=== PATIENT | female | born 1975 | race American Indian/Alaskan Native ===

== ENCOUNTER 2018-11-15 21:53 | Inpatient (IN) | payer BC, OTHER ==
[2018-11-15] MEDS ORDERED: NACL 0.9% 1000 ML 1,000 ML IV ONE ×2 (22:34→23:44)
[2018-11-15 23:00] LABS: Basophils % (Auto) 0.6 % (0.0-1.8); Eosinophils % (Auto) 0.4 % (0.0-4.3); Hemoglobin 13.4 gm/dl (10.1-14.3); Lymphocytes # (Auto) 1.3 K/mm3 (1.2-5.4); Lymphocytes % (Auto) 24.1 % (13.4-35.0); Mean Corpuscular HGB Conc 33 % (30-34); Mean Corpuscular Volume 80 fl (79-97); Monocytes # (Auto) 0.4 K/mm3 (0.0-0.8); Monocytes % (Auto) 6.7 % (0.0-7.3); Platelet Count 224 K/mm3 (140-440); Red Blood Count 5.15 M/mm3 (3.65-5.03); Red Cell Distribution Width 15.5 % (13.2-15.2)
[2018-11-15] MEDS ORDERED: NORMODYNE IV ONE (23:05)
[2018-11-15 23:09] LABS: Bilirubin,Urine NEG (Negative); Blood,Urine SM (Negative); Color,Urine Straw (Yellow); Urobilinogen,Urine < 2.0 mg/dL (<2.0)
[2018-11-15 23:11] LABS: Protein,Urine >500 mg/dL (Negative)
[2018-11-15 23:28] LABS: Calcium 9.5 mg/dL (8.4-10.2)
[2018-11-15] MEDS ORDERED: KEPPRA 1,000 MG/NS 0.75% 100ML 1,000 MG/100 ML BAG IV ONE (23:44)
[2018-11-15] MEDS ORDERED: HumuLIN R IV ONE (23:44)
--- NOTE | 2018-11-15 23:50 | Cat Scan Report ---
PROCEDURE: CT HEAD/BRAIN WO CON TECHNIQUE: Computerized tomography of the head was performed without contrast material. CT DOSE LENGTH PRODUCT: mGycm HISTORY: seizure, ams COMPARISONS: None . FINDINGS: Skull and scalp: Normal . Paranasal sinuses: Normal . Ventricles and subarachnoid spaces: Normal . Cerebrum: No evidence of hemorrhage, acute infarction or mass . Cerebellum and brainstem: No evidence of hemorrhage, acute infarction or mass . Vasculature: Normal . Other: None . ASPECTS: 10 IMPRESSION: Normal Examination . This document is electronically signed by Shalom Guillaume MD., November 15 2018 11:47:51 PM ET
[2018-11-16] MEDS ORDERED: ZOFRAN ONE (00:44)
--- NOTE | 2018-11-16 00:58 | Emergency Department Report ---
ED Seizure HPI - General Chief Complaint: Seizure Stated Complaint: SEIZURE Time Seen by Provider: 11/15/18 22:19 Source: EMS Mode of arrival: Stretcher Limitations: Altered Mental Status - History of Present Illness Initial Comments: 33-year-old female with history of hypertension ED following a seizure work. 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 Friend states she was with her today and patient was complaining of cramping to her hands. States patient then had a seizure that lasted for approx 2-3 minutes. Patient had urinary incontinence as well. EMS was called. Accucheck reads HIGH. EMS initially reported that pt had history of seizure, HYN, and diabetes. Friend currently at bedside. States that the patient does not have history of seizures or diabetes. Patient appears to be postictal at this time. Friend states patient does not use alcohol or drugs. MD Complaint: seizure -: This afternoon Description of Episode: loss of consciousness, tonic-clonic movement, bladder incontinence Witnessed:: Yes Seizure History: none Place: work - Related Data Allergies Allergy/AdvReac Type Severity Reaction Status Date / Time No Known Allergies Allergy Verified 11/15/18 23:51 ED Review of Systems ROS: Stated complaint: SEIZURE Other details as noted in HPI Comment: Unobtainable due to pts medical conditions (altered mental status) ED Past Medical Hx - Past Medical History Previous Medical History?: Yes Hx Hypertension: Yes Hx Diabetes: Yes Hx Seizures: Yes - Surgical History Past Surgical History?: No - Social History Smoking Status: Never Smoker Substance Use Type: None ED Physical Exam - General Limitations: Altered Mental Status General appearance: lethargic - Head Head exam: Present: atraumatic, normocephalic - Eye Eye exam: Present: normal appearance, PERRL, EOMI - ENT ENT exam: Present: mucous membranes moist - Neck Neck exam: Present: normal inspection - Respiratory Respiratory exam: Present: normal lung sounds bilaterally. Absent: respiratory distress - Cardiovascular Cardiovascular Exam: Present: regular rate, normal rhythm - GI/Abdominal GI/Abdominal exam: Present: soft. Absent: distended, tenderness - Extremities Exam Extremities exam: Present: normal inspection - Neurological Exam Neurological exam: Present: altered, other (moves all extremities, not following commands, not speaking) - Skin Skin exam: Present: warm, dry, intact, normal color. Absent: rash ED Course Vital Signs 11/15/18 11/15/18 11/15/18 22:13 22:40 22:45 Temperature 98.1 F Pulse Rate 115 H 105 H 101 H Respiratory 16 18 29 H Rate Blood Pressure 215/154 203/154 O2 Sat by Pulse 96 90 95 Oximetry 11/15/18 11/15/18 11/15/18 23:00 23:10 23:18 Temperature Pulse Rate 101 H Respiratory 11 L Rate Blood Pressure 189/143 204/121 206/137 O2 Sat by Pulse 92 94 Oximetry 11/15/18 11/15/18 11/15/18 23:33 23:39 23:45 Temperature Pulse Rate 86 Respiratory 26 H 18 24 Rate Blood Pressure 206/137 199/141 O2 Sat by Pulse 99 99 Oximetry 11/15/18 11/16/18 11/16/18 23:48 00:00 00:15 Temperature 98.0 F Pulse Rate 87 89 Respiratory 17 23 Rate Blood Pressure 206/148 206/137 O2 Sat by Pulse 100 93 Oximetry 11/16/18 02:02 Temperature Pulse Rate 85 Respiratory Rate Blood Pressure 176/127 O2 Sat by Pulse Oximetry - Reevaluation(s) Reevaluation #1: 11/16/18 00:53 Pt remains altered. Patient is awake and alert. When I ask pt her name, she mumbles a response but speech is unrecognizable. She also seems to be somewhat agitated, moving around on stretcher, whining as if she id about to cry. Will obtain drug screen and ETOH. ED Medical Decision Making - Lab Data Result diagrams: 11/15/18 22:45 11/15/18 22:45 - EKG Data -: EKG Interpreted by Me EKG shows normal: sinus rhythm, axis, intervals, QRS complexes, ST-T waves Rate: normal - EKG Data Interpretation: LVH, other (T wave inversions II, III, aVF, V3-V6) - Radiology Data Radiology results: report reviewed, image reviewed - Medical Decision Making 43-year-old female here in ED with seizure and hyperglycemia, both possibly new onset. Patient remains altered, prolonged post-ictal period. Blood pressure remained elevated despite labetalol, hydralazine, Ativan. So cardene drip initiated. Initial glucose resulted at 800, however patient does not appear to be in DKA as bicarbonate is normal, no ketones present. 2 L bolus of IV fluids and 10 units of insulin given. Repeat Accu-Chek 371. CT head negative, chest x-ray negative. Patient afebrile, wbc's normal, no signs of infection. UA and test both negative. Drug screen, ETOH, tylenol, salicylates all negative. Spoke with hospitalist, Dr Jacobo, for admission and further workup. - Differential Diagnosis CVA, hyperglycemia, DKA, HTN emergency Critical Care Time: Yes Critical care time in (mins) excluding proc time.: 60 Critical care attestation.: If time is entered above; I have spent that time in minutes in the direct care of this critically ill patient, excluding procedure time. Critical Care Time: 60 minutes ED Disposition Clinical Impression: Hyperglycemia, Seizure, Hypertensive emergency Disposition: -09 OP ADMIT IP TO THIS HOSP Is pt being admited?: Yes Condition: Critical Instructions: Hypertension (ED) Referrals: PRIMARY CARE, [Primary Care Provider] - 3-5 Days Time of Disposition: 02:39
[2018-11-16] MEDS ORDERED: ATIVAN ONE ×3 (01:37→21:55)
[2018-11-16] MEDS ORDERED: ZOFRAN IV ONE (01:38)
[2018-11-16] MEDS ORDERED: ATIVAN IV ONE (01:39)
[2018-11-16] MEDS ORDERED: APRESOLINE IV ONE ×2 (01:43→02:31)
--- NOTE | 2018-11-16 02:06 | XRay Report ---
PROCEDURE: XR CHEST 1V AP TECHNIQUE: Chest radiograph single view. HISTORY: AMS COMPARISONS: None . FINDINGS: Heart: The heart is mildly enlarged.. Mediastinum/Vessels: Normal. Lungs/Pleural space: Normal. Bony thorax: No acute osseous abnormality. Life support devices: None. IMPRESSION: No acute cardiopulmonary abnormality. This document is electronically signed by Jeet Aguirre MD., November 16 2018 02:04:49 AM ET
[2018-11-16 02:18] LABS: Amphetamine Screen,Urine PRESUMPTIVE NEGATIVE; Benzodiazepines Screen,Urine PRESUMPTIVE NEGATIVE; Cannabinoid Screen,Urine PRESUMPTIVE NEGATIVE; Cocaine Screen,Urine PRESUMPTIVE NEGATIVE; Methadone Screen,Urine PRESUMPTIVE NEGATIVE; Opiate Screen,Urine PRESUMPTIVE NEGATIVE
[2018-11-16] MEDS: CARDENE 50 MG in NACL 0.9% 250ML 230 ML IV SCH ×2 (03:06→12:57)
[2018-11-16] MEDS ORDERED: TYLENOL PR PRN (03:35)
[2018-11-16] MEDS ORDERED: SODIUM CHLORIDE FLUSH SYRINGE 10 ML IV PRN (03:35)
[2018-11-16] MEDS ORDERED: ZOFRAN IV PRN (03:35)
[2018-11-16] MEDS ORDERED: TYLENOL PO PRN (03:35)
[2018-11-16] MEDS ORDERED: D50W (25GM) Syringe IV PRN ×2 (03:42→15:26)
--- NOTE | 2018-11-16 03:43 | History and Physical Report ---
History of Present Illness Date of examination: 11/16/18 History of present illness: 43-year-old man with a history of hypertension was brought to the emergency room because she had a seizure. Not much history was able to be obtained, her speech was tangential in the emergency room, she was agitated and again given IV Ativan, she is now sedated. She was started on Cardene drip for uncontrolled hypertension, her sugars were found to be elevated. Review of system is unobtainable PAST MEDICAL HISTORY: hypertension PAST SURGICAL HISTORY: Unknown SOCIAL HISTORY: Unknown FAMILY HISTORY: Unknown Medications and Allergies Allergies Allergy/AdvReac Type Severity Reaction Status Date / Time No Known Allergies Allergy Verified 11/15/18 23:51 Active Meds: Active Medications Acetaminophen (Tylenol) 650 mg PO Q4H PRN PRN Reason: Pain, Mild (1-3) Acetaminophen (Tylenol) 650 mg MT Q4H PRN PRN Reason: Pain, Mild (1-3) Enoxaparin Sodium (Lovenox) 30 mg SUB-Q QDAY MORGAN Nicardipine HCl 50 mg/ Sodium (Chloride) 250 mls @ 25 mls/hr IV TITR MORGAN; Protocol Last Titration: 11/16/18 03:35 Dose: 2.5 mg/hr, 12.5 mls/hr Documented by: Ondansetron HCl (Zofran) 4 mg IV Q8H PRN PRN Reason: Nausea And Vomiting Sodium Chloride (Sodium Chloride Flush Syringe 10 Ml) 10 ml INJ PRN PRN PRN Reason: LINE FLUSH Exam - Physical Exam Narrative exam: General Apperance: The patient lying in bed, breathing comfortable HEENT: Normocephalic, atraumatic. Pupils equally round and reactive to light, unable to do EOM, no sclericterus or JVD or thyromegaly or nodule. , no carotid bruit, mucous membranes moist, unable to examine oral cavity, ET tube in place Heart: S1-S2, regular is rhythm Lungs: Clear to auscultation bilaterally, breathing comfortable Abdomen: Positive bowel sounds, soft, nondistended, no organomegaly Extremities: No edema cyanosis clubbing Skin: no rash, nodule, warm and dry Neuro: Sedated, moves all 4 extremities - Constitutional Vitals: Temp Pulse Resp BP Pulse Ox 98.0 F 99 H 19 175/109 99 11/15/18 23:48 11/16/18 03:31 11/16/18 03:31 11/16/18 03:31 11/16/18 03:31 Results - Labs CBC & Chem 7: 11/16/18 08:39 11/16/18 23:35 Labs: Abnormal lab results 11/15/18 11/15/18 11/15/18 Range/Units 22:45 22:45 22:48 RBC 5.15 H (3.65-5.03) M/mm3 MCH 26 L (28-32) pg RDW 15.5 H (13.2-15.2) % Sodium 127 L (137-145) mmol/L Potassium 3.4 L (3.6-5.0) mmol/L Chloride 85.6 L (98-107) mmol/L BUN 18 H (7-17) mg/dL Creatinine 1.4 H (0.7-1.2) mg/dL Glucose 808 H* (65-100) mg/dL POC Glucose > 500 H (70-105) Salicylates (2.8-20.0) mg/dL Acetaminophen (10.0-30.0) ug/mL 11/16/18 11/16/18 11/16/18 Range/Units 01:01 01:01 01:41 RBC (3.65-5.03) M/mm3 MCH (28-32) pg RDW (13.2-15.2) % Sodium (137-145) mmol/L Potassium (3.6-5.0) mmol/L Chloride (98-107) mmol/L BUN (7-17) mg/dL Creatinine (0.7-1.2) mg/dL Glucose (65-100) mg/dL POC Glucose 371 H (70-105) Salicylates 1.8 L (2.8-20.0) mg/dL Acetaminophen < 5.0 L (10.0-30.0) ug/mL 11/16/18 Range/Units 03:42 RBC (3.65-5.03) M/mm3 MCH (28-32) pg RDW (13.2-15.2) % Sodium (137-145) mmol/L Potassium (3.6-5.0) mmol/L Chloride (98-107) mmol/L BUN (7-17) mg/dL Creatinine (0.7-1.2) mg/dL Glucose (65-100) mg/dL POC Glucose 374 H (70-105) Salicylates (2.8-20.0) mg/dL Acetaminophen (10.0-30.0) ug/mL - Imaging and Cardiology Chest x-ray: report reviewed CT Scan - head: report reviewed Assessment and Plan Assessment Acute encephalopathy, rule out CVA New-onset seizure. Acute renal insufficiency Hypertensive urgency New onset diabetes Plan Admit to medicine Obtain MRI of the head, carotid Doppler, echo Doing neuro checks, consult neurology, critical care Start IV Ativan as needed for seizure Continue Cardene drip, start IV fluid Start aspirin, statin, DVT prophylaxis Check fingersticks, initiate insulin sliding scale, hemoglobin A1c
[2018-11-16 04:27] LABS: Creatine Kinase MB 2.9 ng/mL (0.0-4.0)
[2018-11-16] MEDS ORDERED: NACL 0.45% 1000 ML 1,000 ML IV SCH (05:00)
[2018-11-16] MEDS ORDERED: NACL 0.45% 1000 ML 1,000 ML IV ONE ×2 (06:35→16:42)
[2018-11-16] MEDS ORDERED: HumuLIN R ONE ×2 (08:08→12:06)
[2018-11-16] MEDS: HumaLOG SUB-Q SCH ×4 (08:10→22:30)
[2018-11-16 08:52] LABS: Basophils # (Auto) 0.1 K/mm3 (0.0-0.1); Basophils % (Auto) 0.4 % (0.0-1.8); Hematocrit 40.8 % (30.3-42.9); Hemoglobin 13.5 gm/dl (10.1-14.3); Lymphocytes # (Auto) 1.1 K/mm3 (1.2-5.4); Lymphocytes % (Auto) 7.3 % (13.4-35.0); Mean Corpuscular HGB Conc 33 % (30-34); Mean Corpuscular Volume 78 fl (79-97); Monocytes # (Auto) 0.5 K/mm3 (0.0-0.8); Monocytes % (Auto) 3.6 % (0.0-7.3); Platelet Count 259 K/mm3 (140-440); Red Blood Count 5.21 M/mm3 (3.65-5.03); Red Cell Distribution Width 15.6 % (13.2-15.2)
[2018-11-16 09:10] LABS: BUN/Creatinine Ratio 15; Blood Urea Nitrogen 15 mg/dL (7-17); Calcium 9.2 mg/dL (8.4-10.2); Hemolysis Index 5
[2018-11-16] MEDS ORDERED: LOVENOX SUB-Q SCH ×4 (10:00)
[2018-11-16] MEDS ORDERED: LOVENOX SUB-Q ONE (10:19)
[2018-11-16] MEDS: ATIVAN IV PRN ×2 (10:28→22:00)
--- NOTE | 2018-11-16 10:39 | Vascular Lab Report ---
PROCEDURE: VL CAROTID DUPLEX BILAT TECHNIQUE: Carotid duplex Doppler ultrasound HISTORY: stroke COMPARISON: None FINDINGS: There is a minimal amount of atherosclerotic plaque. There are no abnormal elevation in carotid flow velocity to suggest a hemodynamically significant stenosis. Specifically, findings indicate stenosis of less than 50%. ICA/CCA velocity ratios are normal, 0.66 on the right and 0.60. Vertebral artery fl ow is antegrade bilaterally. IMPRESSION: No evidence of a hemodynamically significant stenosis. This document is electronically signed by Adela Latif MD., November 16 2018 10:37:09 AM ET
--- NOTE | 2018-11-16 11:23 | Progress Note ---
Subjective Date of service: 11/16/18 Interval history: see the dictated comments personal review of the CT of ther brain is normal the likely cause is hyperglycemia seizure control is recommended w/u is pending Objective - Vital Sign Vital Signs - 12hr 11/15/18 11/15/18 11/15/18 23:33 23:39 23:45 Temperature Pulse Rate 86 Respiratory 26 H 18 24 Rate Blood Pressure 206/137 199/141 Blood Pressure [Left] O2 Sat by Pulse 99 99 Oximetry 11/15/18 11/16/18 11/16/18 23:48 00:00 00:15 Temperature 98.0 F Pulse Rate 87 89 Respiratory 17 23 Rate Blood Pressure 206/148 206/137 Blood Pressure [Left] O2 Sat by Pulse 100 93 Oximetry 11/16/18 11/16/18 11/16/18 00:16 00:30 00:46 Temperature Pulse Rate 87 131 H Respiratory 14 16 Rate Blood Pressure 192/150 193/140 193/140 Blood Pressure [Left] O2 Sat by Pulse 100 100 Oximetry 11/16/18 11/16/18 11/16/18 01:01 01:15 01:31 Temperature Pulse Rate 92 H 92 H 94 H Respiratory 21 16 21 Rate Blood Pressure 193/140 189/131 206/147 Blood Pressure [Left] O2 Sat by Pulse 98 100 100 Oximetry 11/16/18 11/16/18 11/16/18 01:45 02:01 02:02 Temperature Pulse Rate 85 116 H 85 Respiratory 24 23 Rate Blood Pressure 176/127 171/129 176/127 Blood Pressure [Left] O2 Sat by Pulse 97 98 Oximetry 11/16/18 11/16/18 11/16/18 02:15 02:30 02:45 Temperature Pulse Rate 89 86 96 H Respiratory 37 H 25 H 18 Rate Blood Pressure 171/129 205/141 214/125 Blood Pressure [Left] O2 Sat by Pulse 100 97 100 Oximetry 11/16/18 11/16/18 11/16/18 03:00 03:15 03:31 Temperature Pulse Rate 91 H 107 H 99 H Respiratory 29 H 26 H 19 Rate Blood Pressure 212/161 212/161 175/109 Blood Pressure [Left] O2 Sat by Pulse 99 100 99 Oximetry 11/16/18 11/16/18 11/16/18 03:45 04:00 04:15 Temperature Pulse Rate 98 H 101 H Respiratory 24 15 32 H Rate Blood Pressure 171/111 184/118 175/121 Blood Pressure [Left] O2 Sat by Pulse 97 97 98 Oximetry 11/16/18 11/16/18 11/16/18 04:31 04:45 05:00 Temperature Pulse Rate 104 H 106 H Respiratory 25 H 17 42 H Rate Blood Pressure 175/121 175/121 203/116 Blood Pressure [Left] O2 Sat by Pulse 100 99 98 Oximetry 11/16/18 07:00 Temperature 99.4 F Pulse Rate 115 H Respiratory 17 Rate Blood Pressure Blood Pressure 198/118 [Left] O2 Sat by Pulse 97 Oximetry - Laboratory Findings CBC and BMP: 11/16/18 08:39 11/16/18 08:39 Abnormal Lab Findings: Abnormal Labs 11/15/18 11/15/18 11/15/18 22:45 22:45 22:48 WBC RBC 5.15 H MCV MCH 26 L RDW 15.5 H Lymph % (Auto) Lymph # Seg Neutrophils % Seg Neutrophils # Sodium 127 L Potassium 3.4 L Chloride 85.6 L Carbon Dioxide BUN 18 H Creatinine 1.4 H Glucose 808 H* POC Glucose > 500 H Hemoglobin A1c Total Creatine Kinase Salicylates Acetaminophen 11/16/18 11/16/18 11/16/18 01:01 01:01 01:41 WBC RBC MCV MCH RDW Lymph % (Auto) Lymph # Seg Neutrophils % Seg Neutrophils # Sodium Potassium Chloride Carbon Dioxide BUN Creatinine Glucose POC Glucose 371 H Hemoglobin A1c Total Creatine Kinase Salicylates 1.8 L Acetaminophen < 5.0 L 11/16/18 11/16/18 11/16/18 03:42 04:02 04:02 WBC RBC MCV MCH RDW Lymph % (Auto) Lymph # Seg Neutrophils % Seg Neutrophils # Sodium Potassium Chloride Carbon Dioxide BUN Creatinine Glucose POC Glucose 374 H Hemoglobin A1c 9.4 H Total Creatine Kinase 200 H Salicylates Acetaminophen 11/16/18 11/16/18 11/16/18 08:02 08:39 08:39 WBC 14.4 H RBC 5.21 H MCV 78 L MCH 26 L RDW 15.6 H Lymph % (Auto) 7.3 L Lymph # 1.1 L Seg Neutrophils % 88.7 H Seg Neutrophils # 12.8 H Sodium Potassium 3.4 L Chloride Carbon Dioxide 18 L BUN Creatinine Glucose 416 H POC Glucose 347 H Hemoglobin A1c Total Creatine Kinase Salicylates Acetaminophen
--- NOTE | 2018-11-16 12:55 | Event Note ---
Date: 11/16/18 patient with seizures, new onset diabetes with hyperglycemia, DKA, encephalopathy, seizures. I have seen and examined patient. discussed with devon art at bedside. Add Keppra 100mg iv q12 scheduled, Obtain stat BMP, if still in DKA, will start insulin drip.
[2018-11-16] MEDS ORDERED: KEPPRA 1,000 MG/NS 0.75% 100ML 1,000 MG/100 ML BAG IV SCH ×2 (14:00→22:00)
[2018-11-16] MEDS ORDERED: KEPPRA 1,000 MG in D5W 100 ML IV SCH (14:00)
[2018-11-16] MEDS ORDERED: KEPPRA 1,000 MG/NS 0.75% 100ML 1,000 MG/100 ML BAG IV ONE ×2 (14:11→22:35)
[2018-11-16 14:32] LABS: BUN/Creatinine Ratio 14; Blood Urea Nitrogen 15 mg/dL (7-17); Calcium 9.1 mg/dL (8.4-10.2); Hemolysis Index 6
[2018-11-16] MEDS ORDERED: HumuLIN R 100 UNITS in NACL 0.9% 99 ML IV SCH (16:00)
[2018-11-16] MEDS ORDERED: TYLENOL PR ONE (16:02)
[2018-11-16 16:07] LABS: Calcium 9.4 mg/dL (8.4-10.2)
[2018-11-16] MEDS ORDERED: D5/0.45NS 1,000 ML IV SCH (18:17)
[2018-11-16 18:35] LABS: Calcium 9.2 mg/dL (8.4-10.2)
[2018-11-16] MEDS ORDERED: D5/0.45NS 1,000 ML IV ONE (19:47)
[2018-11-16 20:20] LABS: Calcium 9.4 mg/dL (8.4-10.2)
--- NOTE | 2018-11-16 22:48 | Consultation ---
HISTORY OF PRESENT ILLNESS: This is a 43-year-old black female that was admitted to [facility] via the Emergency Room and initially was seen on 11/16/2018 by the Emergency Room physician with altered mental status. This patient was admitted with a history of hypertensive episode following a seizure. 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 She was noted to have high blood sugar on admission, hypertension, diabetes. According to family members, she was maybe not taking her medication, that is entirely unclear, but her blood pressure was markedly elevated at 206, and subsequently, her blood sugar was 808. PHYSICAL EXAMINATION: At this point shows she is writhing, turning from side to side, speaking at times, but otherwise slightly unresponsive. The patient has a supple neck. Ocular movements are full. Babinski signs are present. Motor tone is hypertonic throughout, but no active seizure activity is present. Blood pressure presently is 170/110. IMPRESSION: Nonketotic hyperglycemic coma associated with seizures. Would recommend continuing the seizure medicine, blood pressure control. I spoke with family, had an extensive conversation at the bedside with the nurse who went over ultrasounds and the imaging studies, which I did. I personally reviewed the CAT scan of the brain and the patient has some suggestion of cerebellar low intensity, which may be a feature of seizures. The remainder of the brain scan is essentially unremarkable. I do not see any other acute lesions. No evidence of any subarachnoid hemorrhage or bleeding with careful review of the subarachnoid spaces. Pineal gland is in the midline. Ventricular cistern is normal size and shape. Impression; 1. Generalized seizure following a nonketotic hyperglycemic coma. 2. Hypertensive crisis. 3. Unresponsive state. 4. Adult-onset insulin-dependent diabetes mellitus. PLAN: Further workup pending. We get MRI, EEG. JOB# [id number] TENZIN/NTS
[2018-11-16] MEDS ORDERED: HALDOL IM PRN (23:19)
[2018-11-16] MEDS ORDERED: HALDOL ONE (23:25)
[2018-11-16] MEDS ORDERED: D5W/0.45% NACL/KCL 20 MEQ 20 MEQ/1,000 ML BAG IV SCH (23:45)
[2018-11-17] MEDS ORDERED: ROCEPHIN/NS 2 GM/100 ML 2 GM/100 ML BAG IV ONE (01:25)
[2018-11-17] MEDS ORDERED: TYLENOL PR ONE ×2 (01:28→01:35)
[2018-11-17] MEDS ORDERED: KCL 10MEQ/100ML 10 MEQ/100 ML BAG IV ONE ×2 (01:28→03:40)
[2018-11-17] MEDS: KCL 10MEQ/100ML 10 MEQ/100 ML BAG IV SCH ×2 (01:40→03:35)
--- NOTE | 2018-11-17 01:45 | Event Note ---
Nurse rehports the patient had worsening tachycardia continues to be restless No CT capabilities at this time, a rectal temperature was obtained Obtain blood cultures, urinalysis, give Tylenol Start IV Rocephin Family refused spinal tap, wants the patient transferred out [place] contacted, Dr Crandall accepted the patient The high probability of a clinically significant, sudden or life threatening deterioration of the [CV, GI, respiratory] system(s) required my full and direct attention, intervention and personal management. The aggregate critical care time was [40 ] minutes. This time is in addition to time spent performing reported procedures but includes the following: x] Data Review and interpretation [x] Patient assessment and monitoring of vital signs [x] Documentation [x] Medication orders and management
[2018-11-17] MEDS ORDERED: D5/0.45NS 1,000 ML IV ONE (03:18)
[2018-11-17 03:30] VITALS: BP 139/97
--- NOTE | 2018-11-17 09:39 | Discharge Summary ---
Providers - Providers Date of Admission: 11/16/18 03:35 Date of discharge: 11/17/18 Attending physician: JOSE ALCARAZ 11/16/18 Consult to Physician [CONS] Routine Comment: Consulting Provider: JUANIS LAYTON Physician Instructions: Reason For Exam: cva Consult to Physician [CONS] Routine Comment: Answering service notified @ 1565 Consulting Provider: ADAM HARDING Physician Instructions: Reason For Exam: cc 11/16/18 03:35 Occupational Therapy Evaluate and Treat [CONS] Routine Comment: Reason For Exam: Neuro deficits Physical Therapy Evaluation and Treat [CONS] Routine Comment: Reason For Exam: Neuro deficits 11/16/18 13:10 Speech Therapy Evaluation and Treat [CONS] Routine Reason For Exam: Drooling when swallowing Primary care physician: SPECIFICATIONS WRITER Hospitalization Condition: Critical Hospital course: Patient is 43 yo with a history of hypertension was brought to the emergency room because she had a seizure. Patient was evaluated in the Emergency Department . She was given Ativan iv, Keppra. Labs revealed glucose of 808, Sodium of 127 . Also vitals show BP 215/154. She was started on Insulin drip for hyperglycemic hyperosmolar syndrome. She was also started on Cardene drip for hypertensive emergency. Orders were put in for her to be admitted to ICU and she was in the ED awaiting a bed. However overnight she developed fever. A lumbar puncture was ordered however family declined lumbar puncture and requested that patient be transferred. Arrangements were made and she was transferred to [place] on 11/17/2018 in early hours of the morning. Disposition: [id number] ANOTHER TYPE HLTHCARE - Discharge Diagnoses (1) Diabetes mellitus type 2 with neurological manifestations Status: Acute (2) Hyperglycemia Status: Acute (3) Hypertensive emergency Status: Acute (4) Seizure Status: Acute (5) Hyperosmolar syndrome Status: Acute Core Measure Documentation - Palliative Care Palliative Care/ Comfort Measures: Not Applicable - Core Measures Any of the following diagnoses?: none Exam - Constitutional Vitals: Temp Pulse Resp BP Pulse Ox 100.4 F H 123 H 26 H 139/97 98 11/17/18 03:28 11/17/18 03:28 11/17/18 03:28 11/17/18 03:28 11/17/18 03:28 Plan Follow up with: CHRISTIANO HALE MD [Primary Care Provider] - 3-5 Days Forms: Work/School Release Form(ED)
--- NOTE | 2018-11-17 16:42 | Progress Note ---
Subjective Date of service: 11/17/18 Interval history: low grade fever did note family refuses LP transfer out is best option rocephin ordered Objective - Laboratory Findings CBC and BMP: 11/16/18 08:39 11/16/18 23:35 Abnormal Lab Findings: Abnormal Labs 11/15/18 11/15/18 11/15/18 22:45 22:45 22:48 WBC RBC 5.15 H MCV MCH 26 L RDW 15.5 H Lymph % (Auto) Lymph # Seg Neutrophils % Seg Neutrophils # Sodium 127 L Potassium 3.4 L Chloride 85.6 L Carbon Dioxide BUN 18 H Creatinine 1.4 H Glucose 808 H* POC Glucose > 500 H Hemoglobin A1c Total Creatine Kinase Salicylates Acetaminophen 11/16/18 11/16/18 11/16/18 01:01 01:01 01:41 WBC RBC MCV MCH RDW Lymph % (Auto) Lymph # Seg Neutrophils % Seg Neutrophils # Sodium Potassium Chloride Carbon Dioxide BUN Creatinine Glucose POC Glucose 371 H Hemoglobin A1c Total Creatine Kinase Salicylates 1.8 L Acetaminophen < 5.0 L 11/16/18 11/16/18 11/16/18 03:42 04:02 04:02 WBC RBC MCV MCH RDW Lymph % (Auto) Lymph # Seg Neutrophils % Seg Neutrophils # Sodium Potassium Chloride Carbon Dioxide BUN Creatinine Glucose POC Glucose 374 H Hemoglobin A1c 9.4 H Total Creatine Kinase 200 H Salicylates Acetaminophen 11/16/18 11/16/18 11/16/18 08:02 08:39 08:39 WBC 14.4 H RBC 5.21 H MCV 78 L MCH 26 L RDW 15.6 H Lymph % (Auto) 7.3 L Lymph # 1.1 L Seg Neutrophils % 88.7 H Seg Neutrophils # 12.8 H Sodium Potassium 3.4 L Chloride Carbon Dioxide 18 L BUN Creatinine Glucose 416 H POC Glucose 347 H Hemoglobin A1c Total Creatine Kinase Salicylates Acetaminophen 11/16/18 11/16/18 11/16/18 12:04 13:41 15:43 WBC RBC MCV MCH RDW Lymph % (Auto) Lymph # Seg Neutrophils % Seg Neutrophils # Sodium Potassium 3.4 L Chloride Carbon Dioxide 20 L 20 L BUN Creatinine Glucose 401 H 403 H POC Glucose 346 H Hemoglobin A1c Total Creatine Kinase Salicylates Acetaminophen 11/16/18 11/16/18 11/16/18 17:02 17:23 18:12 WBC RBC MCV MCH RDW Lymph % (Auto) Lymph # Seg Neutrophils % Seg Neutrophils # Sodium Potassium Chloride Carbon Dioxide 18 L BUN 18 H Creatinine Glucose 352 H POC Glucose 333 H 255 H Hemoglobin A1c Total Creatine Kinase Salicylates Acetaminophen 11/16/18 11/16/18 11/16/18 19:11 19:26 20:43 WBC RBC MCV MCH RDW Lymph % (Auto) Lymph # Seg Neutrophils % Seg Neutrophils # Sodium Potassium 3.3 L Chloride Carbon Dioxide 20 L BUN 18 H Creatinine Glucose 271 H POC Glucose 246 H 227 H Hemoglobin A1c Total Creatine Kinase Salicylates Acetaminophen 11/16/18 11/16/18 11/17/18 22:13 23:35 01:38 WBC RBC MCV MCH RDW Lymph % (Auto) Lymph # Seg Neutrophils % Seg Neutrophils # Sodium Potassium 2.9 L* Chloride Carbon Dioxide BUN Creatinine Glucose 260 H POC Glucose 234 H 239 H Hemoglobin A1c Total Creatine Kinase Salicylates Acetaminophen 11/17/18 03:29 WBC RBC MCV MCH RDW Lymph % (Auto) Lymph # Seg Neutrophils % Seg Neutrophils # Sodium Potassium Chloride Carbon Dioxide BUN Creatinine Glucose POC Glucose 143 H Hemoglobin A1c Total Creatine Kinase Salicylates Acetaminophen
== END 2018-11-17 04:28 | disposition other institution (70) | DRG 100 ==
LOC: ED 21:53 → CC1 11-16 03:35
PROVIDERS: ADMIT Internal Medicine; ATTEND Internal Medicine
DX: G40.909 Epilepsy, unspecified, not intractable, without status epilepticus (principal); E11.11 Type 2 diabetes mellitus with ketoacidosis with coma; I16.1 Hypertensive emergency; R73.9 Hyperglycemia, unspecified; I10 Essential (primary) hypertension; Z78.1 Physical restraint status
CPT/HCPCS: 36415; 70450; 71045; 80048; 80307; 80320; 81001; 82550; 82553; 82962; 83036; 83735; 84100; 84484; 84703; 85025; 87040; 93005; 93010; 93306; 93880; G0378; G0480; J0360; J0696; J1630; J1650; J1815; J1953; J2060; J2405; J3480; J7030; J7050

== ENCOUNTER 2022-06-10 21:29 | Emergency (ER) | payer OTHER ==
[2022-06-10] MEDS ORDERED: niCARdipine DRIP 40 MG/200 ML BAG IV ONE (21:51)
--- NOTE | 2022-06-10 21:59 | Consultation ---
Medications and Allergies Allergies Allergy/AdvReac Type Severity Reaction Status Date / Time No Known Allergies Allergy Verified 11/15/18 23:51 Home Medications Medication Instructions Recorded Confirmed Last Taken Type Clonidine HCl [Kapvay] 0.1 mg PO BID 11/28/19 11/28/19 Unknown History Doxazosin Mesylate [Cardura Xl] 4 mg PO DAILY 11/28/19 11/28/19 Unknown History NIFEdipine [Nifedipine ER] 60 mg PO BID 11/28/19 11/28/19 Unknown History carvediloL [Coreg] 25 mg PO BID 11/28/19 11/28/19 Unknown History Insulin NPH/Regular [NovoLIN 70/30] 22 unit SUB-Q BIDDIAB #2 vial 12/04/19 Unknown Rx Lispro Insulin [HumaLOG] 5 unit SUB-Q QACHS #1 vial 12/04/19 Unknown Rx hydrALAZINE [Apresoline TAB] 50 mg PO Q8HR #90 tablet 12/04/19 Unknown Rx Active Meds: Active Medications Nicardipine/Sodium Chloride (Cardene Drip 40 Mg/200 Ml) 40 mg in 200 mls @ 25 mls/hr IV ONCE ONE; Protocol Stop: 06/11/22 05:50 Physical Examination - Vital Signs Vital Signs: Vital Signs Temp Pulse Resp BP Pulse Ox 98.9 F 93 H 18 177/126 100 06/10/22 21:30 06/10/22 21:30 06/10/22 21:30 06/10/22 21:30 06/10/22 21:30 Assessment and Plan [facility] Consult Note # Demographics Consult Type: Acute Stroke Level 1 (0-4.5 hrs) Patient Location: Emergency Room First Name: Mary Alice Last Name: Joce Date of : 1975 Age: 47 Gender: Female Facility: [facility] Time of Initial Page ( Time): 06/10/2022, 21:33 Time of Return Call ( Time): 06/10/2022, 21:33 # HPI History: 47F # Data Time Head CT personally read by me ( Time): 06/10/2022, 21:[address]: hemorrhage preliminarily reviewed by me, please refer to radiology read for official reading right thalamic # Assessment Impression: Intracerebral hemorrhage # Plan Thrombolytic/Intervention: NOT IV Thrombolysis or IA Intervention candidate Thrombolytic Exclusion (< 3 hour window): ICH Intraarterial Exclusion: ICH Blood Pressure Management: nicardipine labetolol Target Blood Pressure: SBP < 140 Other: consult neurosurgery telemetry monitoring Disposition: admit # Logistics Telemedicine: phone only # Demographics First Name: Mary Alice Last Name: Primo Facility: [facility]
--- NOTE | 2022-06-10 22:01 | Cat Scan Report ---
CT HEAD WITHOUT CONTRAST INDICATION / CLINICAL INFORMATION: CODE STROKE,LNW 20:00HRS , LEFT SIDE WEAKNESS, [id number] . TECHNIQUE: All CT scans at this location are performed using CT dose reduction for ALARA by means of automated exposure control. COMPARISON: CT head without contrast from 03/17/2020. FINDINGS: BRAIN PARENCHYMA: Acute intraparenchymal hemorrhage likely representing a stroke is seen along the ri ght thalamus with localized edema. No other acute intraparenchymal hemorrhage. No midline shift or ma ss effect. Probable chronic microvascular ischemic changes are seen along the periventricular white m atter. A questionable old infarct is seen superiorly along the right frontal lobe. VENTRICULAR SYSTEM/EXTRA-AXIAL SPACES: Ventricles are normal for age. No extra-axial fluid collection . ORBITS: Normal as visualized. SKELETAL SYSTEM/SOFT TISSUES: Normal bones and soft tissues. PARANASAL SINUSES/MASTOID AIR CELLS: No significant abnormality. ADDITIONAL FINDINGS: None. IMPRESSION: Acute hemorrhagic right thalamic infarct with additional findings as above. CRITICAL RESULT: Time of Discovery (FACILITY MAINTENANCE TECHNICIAN/CDT): 20:50 Time of Communication (FACILITY MAINTENANCE TECHNICIAN/CDT): 20:57 Licensed Practitioner Receiving Report: Dr. Jordan Read-Back Performed: Yes. Signer Name: Inocencio Lay MD Signed: 06/10/2022 9:57 PM Workstation Name: [id number]
--- NOTE | 2022-06-10 22:04 | Emergency Department Report ---
ED Neuro Deficit HPI - General Stated Complaint: CODE STROKE Time Seen by Provider: 06/10/22 21:37 Source: patient, EMS Mode of arrival: Stretcher - History of Present Illness Initial Comments: Patient is a 47-year-old female with history of previous CVA brought in by EMS with complaint of left-sided weakness beginning at approximately 8 PM this evening. History of hypertension and diabetes. - Related Data Home Medications: Home Medications Medication Instructions Recorded Confirmed Last Taken Clonidine HCl [Kapvay] 0.1 mg PO BID 11/28/19 11/28/19 Unknown Doxazosin Mesylate [Cardura Xl] 4 mg PO DAILY 11/28/19 11/28/19 Unknown NIFEdipine [Nifedipine ER] 60 mg PO BID 11/28/19 11/28/19 Unknown carvediloL [Coreg] 25 mg PO BID 11/28/19 11/28/19 Unknown Previous Rx's Medication Instructions Recorded Last Taken Type Insulin NPH/Regular [NovoLIN 70/30] 22 unit SUB-Q BIDDIAB #2 vial 12/04/19 Unknown Rx Lispro Insulin [HumaLOG] 5 unit SUB-Q QACHS #1 vial 12/04/19 Unknown Rx hydrALAZINE [Apresoline TAB] 50 mg PO Q8HR #90 tablet 12/04/19 Unknown Rx Allergies/Adverse Reactions: Allergies Allergy/AdvReac Type Severity Reaction Status Date / Time No Known Allergies Allergy Verified 11/15/18 23:51 ED Review of Systems ROS: Stated complaint: CODE STROKE Other details as noted in HPI Constitutional: denies: chills, fever Respiratory: denies: cough, shortness of breath, wheezing Cardiovascular: denies: chest pain, palpitations Gastrointestinal: denies: abdominal pain, nausea, diarrhea Genitourinary: denies: urgency, dysuria, discharge Musculoskeletal: denies: back pain, joint swelling, arthralgia Skin: denies: rash, lesions Neurological: weakness Psychiatric: denies: anxiety, depression ED Past Medical Hx - Past Medical History Hx Hypertension: Yes Hx Diabetes: Yes Hx Seizures: Yes - Social History Smoking Status: Never Smoker Substance Use Type: None - Medications Home Medications: Home Medications Medication Instructions Recorded Confirmed Last Taken Type Clonidine HCl [Kapvay] 0.1 mg PO BID 11/28/19 11/28/19 Unknown History Doxazosin Mesylate [Cardura Xl] 4 mg PO DAILY 11/28/19 11/28/19 Unknown History NIFEdipine [Nifedipine ER] 60 mg PO BID 11/28/19 11/28/19 Unknown History carvediloL [Coreg] 25 mg PO BID 11/28/19 11/28/19 Unknown History Insulin NPH/Regular [NovoLIN 70/30] 22 unit SUB-Q BIDDIAB #2 vial 12/04/19 Unknown Rx Lispro Insulin [HumaLOG] 5 unit SUB-Q QACHS #1 vial 12/04/19 Unknown Rx hydrALAZINE [Apresoline TAB] 50 mg PO Q8HR #90 tablet 12/04/19 Unknown Rx ED Neuro Physical Exam - General General appearance: alert, in no apparent distress Suspected Stroke: Yes - Head Head exam: Present: atraumatic, normocephalic - Respiratory Respiratory exam: Present: normal lung sounds bilaterally. Absent: respiratory distress - Cardiovascular Cardiovascular Exam: Present: regular rate, normal rhythm, normal heart sounds - GI/Abdominal GI/Abdominal exam: Present: soft. Absent: distended, tenderness - Rectal Rectal exam: Present: deferred - Neurological Exam Neurological exam: Present: alert, oriented X3, CN II-XII intact - NIHSS Assessment Interval: Baseline 1a. Level of Consciousness: alert/keenly responsive 1b. LOC Questions: answers both correctly 1c. LOC Commands: performs tasks correctly 2. Best Gaze: normal 3. Visual: no visual loss 4. Facial Palsy: normal symmetrical movement 5b. Motor Arm Right: no drift 5a. Motor Arm Left: some gravity effort 6a. Motor Leg Left: some gravity effort 6b. Motor Leg Right: no drift 7. Limb Ataxia: present 1 limb 8. Sensory: normal 9. Best Language: no aphasia 10. Dysarthria: normal 11. Extinction/Inattention: no abnormality Total Score: 5 Stroke Severity: Moderate Stroke - Psychiatric Psychiatric exam: Present: normal affect, normal mood - Skin Skin exam: Present: warm, dry, intact, normal color ED Course Vital Signs 06/10/22 06/10/22 06/10/22 21:30 21:55 23:00 Temperature 98.9 F 98.1 F Pulse Rate 93 H 101 H 104 H Respiratory 18 24 19 Rate Blood Pressure 177/126 Blood Pressure 164/95 135/89 [Left] O2 Sat by Pulse 100 98 95 Oximetry - Lab Data Result diagrams: 06/10/22 22:20 06/10/22 22:20 Lab Results 06/10/22 06/10/22 06/10/22 Range/Units 22:20 22:20 22:20 WBC 11.0 (4.5-11.0) K/mm3 RBC 4.62 (3.65-5.03) M/mm3 Hgb 12.4 (10.1-14.3) gm/dl Hct 36.6 (30.3-42.9) % MCV 79 (79-97) fl MCH 27 L (28-32) pg MCHC 34 (30-34) % RDW 15.5 H (13.2-15.2) % Plt Count 324 (140-440) K/mm3 Lymph % (Auto) 16.8 (13.4-35.0) % Burke % (Auto) 8.0 H (0.0-7.3) % Eos % (Auto) 0.5 (0.0-4.3) % Baso % (Auto) 0.4 (0.0-1.8) % Lymph # (Auto) 1.8 (1.2-5.4) K/mm3 Burke # (Auto) 0.9 H (0.0-0.8) K/mm3 Eos # (Auto) 0.1 (0.0-0.4) K/mm3 Baso # (Auto) 0.0 (0.0-0.1) K/mm3 Seg Neutrophils % 74.3 H (40.0-70.0) % Seg Neutrophils # 8.1 H (1.8-7.7) K/mm3 PT 12.4 (12.2-14.9) Sec. INR 0.82 L (0.87-1.13) APTT 28.1 (24.2-36.6) Sec. Thrombin Time 16.5 (15.1-19.6) Sec. Sodium 140 (137-145) mmol/L Potassium 2.9 L* (3.6-5.0) mmol/L Chloride 100.1 (98-107) mmol/L Carbon Dioxide 25 (22-30) mmol/L Anion Gap 18 mmol/L BUN 18 H (7-17) mg/dL Creatinine 1.0 (0.6-1.2) mg/dL Estimated GFR > 60 ml/min BUN/Creatinine Ratio 18 % Glucose 156 H (65-100) mg/dL Calcium 9.7 (8.4-10.2) mg/dL Total Bilirubin 0.20 (0.1-1.2) mg/dL AST 14 (5-40) units/L ALT 8 (7-56) units/L Alkaline Phosphatase 92 (35-129) units/L Troponin T < 0.010 (0.00-0.029) ng/mL Total Protein 8.3 H (6.3-8.2) g/dL Albumin 4.6 (3.9-5) g/dL Albumin/Globulin Ratio 1.2 % - Medical Decision Making CT head shows acute right thalamic hemorrhage with no midline shift. Blood pressure currently 170/100. We will initiate Cardene drip with goal of systolic blood pressure equal to or less than 150. [facility] contacted and will accept transfer. Critical Care Time: Yes Critical care time in (mins) excluding proc time.: 60 Critical care attestation.: If time is entered above; I have spent that time in minutes in the direct care of this critically ill patient, excluding procedure time. ED Disposition Clinical Impression: Hemorrhagic stroke Disposition: 02 SHORT TERM [facility]OSPITAL Is pt being admited?: No Condition: Stable
[2022-06-10 22:33] LABS: Basophils % (Auto) 0.4 % (0.0-1.8); Eosinophils # (Auto) 0.1 K/mm3 (0.0-0.4); Eosinophils % (Auto) 0.5 % (0.0-4.3); Hematocrit 36.6 % (30.3-42.9); Hemoglobin 12.4 gm/dl (10.1-14.3); Lymphocytes # (Auto) 1.8 K/mm3 (1.2-5.4); Lymphocytes % (Auto) 16.8 % (13.4-35.0); Mean Corpuscular HGB Conc 34 % (30-34); Mean Corpuscular Volume 79 fl (79-97); Monocytes # (Auto) 0.9 K/mm3 (0.0-0.8); Platelet Count 324 K/mm3 (140-440); Red Blood Count 4.62 M/mm3 (3.65-5.03); Red Cell Distribution Width 15.5 % (13.2-15.2)
[2022-06-10 22:45] LABS: INR 0.82 (0.87-1.13); Partial Thromboplastin Time 28.1 Sec. (24.2-36.6)
[2022-06-10 22:46] LABS: Thrombin Time 16.5 Sec. (15.1-19.6)
[2022-06-10 22:51] LABS: Alanine Aminotransferase 8 units/L (7-56); Albumin 4.6 g/dL (3.9-5); BUN/Creatinine Ratio 18; Blood Urea Nitrogen 18 mg/dL (7-17); Calcium 9.7 mg/dL (8.4-10.2); Hemolysis Index 9
[2022-06-10] MEDS ORDERED: POTASSIUM CHLORIDE 10 MEQ 10 MEQ/100 ML BAG IV SCH (23:00)
[2022-06-10] MEDS ORDERED: SODIUM CHLORIDE 0.9% 1000 ML 1,000 ML IV ONE (23:14)
[2022-06-11 00:38] VITALS: BP 156/98
--- NOTE | 2022-06-15 12:28 | Electrocardiograph Report ---
[facility] Test Date: 2022-06-10 Test Time: 22:10:38 Pat Name: SUMAYA ROJAS Department: Room: Gender: F [employer] Operator: TEENA Sauer : 1975 Requested By: MITCHELL DAY Order Number: [id number] Reading MD: Flaco Schrader Measurements Intervals [place] Rate: 102 P: 35 TX: 171 QRS: 34 QRSD: 97 T: 252 QT: 361 QTc: 471 Interpretive Statements Sinus tachycardia Probable left atrial enlargement Probable LVH with secondary repol abnrm Anterior ST elevation, probably due to LVH No previous ECG available for comparison Electronically Signed On 06-15-2022 9:28:10 PDT by Flaco Schrader
== END 2022-06-11 00:10 | disposition short-term general hospital (02) ==
LOC: ED 21:29
DX: I62.9 Nontraumatic intracranial hemorrhage, unspecified (principal); I10 Essential (primary) hypertension; E11.9 Type 2 diabetes mellitus without complications; R56.9 Unspecified convulsions
CPT/HCPCS: 36415; 70450; 80053; 84484; 85025; 85610; 85670; 85730; 93005; 96360; 99291; J3480; 99285